=== PATIENT | female | born 1985 | race Caucasian/White ===

== ENCOUNTER 2024-06-29 16:11 | Emergency (ER) | payer BC, MEDICAID ==
[~2024-06-29] VITALS: Ht 149.9 cm; Wt 68.2 kg
[~2024-06-29 16:11] MED LIST: CYCL-394 PO; HYDR1TAB PO; IBUP-1984 PO; PHEN-716 PO
[2024-06-29 17:43] LABS: BASOPHILS # (AUTO) 0.1 X10'3 (0-0.2); BASOPHILS % (AUTO) 1.1 % (0-1); EOSINOPHILS # (AUTO) 0.1 X10'3 (0-0.9); EOSINOPHILS % (AUTO) 0.9 % (0-6); HEMATOCRIT 38.2 % (35.0-45.0); HEMOGLOBIN 12.9 g/dl (12.0-16.0); LYMPHOCYTES # (AUTO) 1.6 X10'3 (1.1-4.8); LYMPHOCYTES % (AUTO) 11.7 % (21-51); MEAN CORPUSCULAR HEMOGLOBIN 31.1 PG (27.0-31.0); MEAN CORPUSCULAR HGB CONC 33.7 g/dL (33.0-36.5); MEAN CORPUSCULAR VOLUME 92.3 FL (78-98); MEAN PLATELET VOLUME 10.2 FL (7.4-10.4); MONOCYTES % (AUTO) 6.8 % (2-12); NEUTROPHILS # (AUTO) 11.2 X10'3 (1.8-7.7); NEUTROPHILS % (AUTO) 79.5 % (42-75); PLATELET COUNT 176 X10'3 (140-440); RED BLOOD COUNT 4.14 X10'6 (4.20-5.60); RED CELL DISTRIBUTION WIDTH 13.4 % (11.5-14.5); WHITE BLOOD COUNT 14.1 X10'3 (4.5-11.0)
[2024-06-29] MEDS: normal saline 1000ml 1,000 ML IV ONE ×2 (17:45→18:07)
[2024-06-29 17:51] LABS: CLARITY,URINE CLEAR (Clear)
[2024-06-29 17:57] LABS: ALANINE AMINOTRANSFERASE 423 U/L (12-78); ALBUMIN/GLOBULIN RATIO 1.3 (1.1-1.5); ALKALINE PHOSPHATASE 57 IU/L (46-116); ANION GAP 9 (8-16); BILIRUBIN,TOTAL 0.6 MG/DL (0.1-1.0); BLOOD UREA NITROGEN 22 MG/DL (7-18); BUN/CREATININE RATIO 32.8 (10.0-20.0); CALCIUM 9.1 MG/DL (8.5-10.1); CHLORIDE 106 MMOL/L (99-107); CREATININE 0.67 MG/DL (0.40-0.90); GLUCOSE 101 MG/DL (70-104); SODIUM 140 MMOL/L (135-145); TOTAL CARBON DIOXIDE 25.3 MMOL/L (24-32); TOTAL PROTEIN 7.2 G/DL (6.4-8.2); eCRCL 78 ML/MIN; eGFR > 90 ML/MIN
[2024-06-29 17:58] LABS: COLOR,URINE RED (Yellow); UA COLLECTION TYPE NON-SPECIFIED
[2024-06-29 18:00] LABS: ASPARTATE AMINO TRANSFERASE 1556 U/L (10-37)
[2024-06-29 18:04] LABS: BACTERIA,URINE FEW /HPF (Neg); FINE GRANULAR CAST 0-3 /LPF (NEGATIVE); MUCUS STRANDS MODERATE /LPF (Neg); RBC,URINE 20-50 /HPF (0-2); SQUAMOUS EPITHELIAL CELL,UR MODERATE /LPF (FEW)
[2024-06-29 18:20] LABS: CREATINE KINASE 1866 U/L (26-192)
[2024-06-29 19:10] VITALS: BP 113/59; PULSE 56; RESP 12; TEMP 98.3; O2SAT 100
[2024-06-29] MEDS ORDERED: NITR100C6 PO (19:13)
[2024-06-29] MEDS: nitrofuran monohydrate/nitrofuran macrocrysal 100 MG (MacroBID) capsule PO ONE (19:22)
== END 2024-06-29 19:23 | disposition home or self-care (01) ==
LOC: ER 16:12
DX: M62.82 Rhabdomyolysis (principal); N39.0 Urinary tract infection, site not specified; R74.01 Elevation of levels of liver transaminase levels; Z88.1 Allergy status to other antibiotic agents; Z79.899 Other long term (current) drug therapy; Z72.89 Other problems related to lifestyle
CPT/HCPCS: 36415; 80053; 81001; 82550; 85025; 87088; 96360; 99283; J7030